=== PATIENT | male | born 1980 | race Caucasian/White ===

== ENCOUNTER → 2020-11-22 | Outpatient (CLI) | payer OTHER ==
[~2020-11-22] MED LIST: FLONASEALLERGY NS; NORCO 325 MG-51 TAB PO; ZYRTEC ALLERGY10 MG PO
== END ==
LOC: MHCPAIN 09:33
DX: M47.816 Spondylosis without myelopathy or radiculopathy, lumbar region (principal); M54.16 Radiculopathy, lumbar region; M53.3 Sacrococcygeal disorders, not elsewhere classified; G89.29 Other chronic pain
CPT/HCPCS: G0463

== ENCOUNTER 2020-11-27 10:24 | Day surgery (SDC) | payer OTHER ==
[~2020-11-27] VITALS: Ht 180.3 cm; Wt 103.8 kg
[2020-11-27 11:06] VITALS: BP 137/84; PULSE 63; TEMP 98.4
[2020-11-27] MEDS ORDERED: ZYRTEC ALLERGY10 MG PO (11:12)
[2020-11-27] MEDS ORDERED: FLONASEALLERGY NS (11:13)
[2020-11-27] MEDS ORDERED: NORCO 325 MG-51 TAB PO (14:06)
[2020-11-27 14:55] VITALS: BP 130/96; PULSE 54; TEMP 97.5
--- NOTE | 2020-11-27 14:55 | NUR ---
TO RM 6 PER CART FROM PACU. ALERT ORIENTED X 3 TALKING TO STAFF. UPON RETURNING AMBULATED TO BATHROOM WITH ASSIST. VOIDED AND AMBULATED BACK TO RM. [employer] INTACT. C/O 01/29.
[2020-11-27 15:00] VITALS: BP 147/79; PULSE 51
--- NOTE | 2020-11-27 15:00 | NUR ---
TEXTING ON PHONE . C/O PAIN 03/01
[2020-11-27 15:15] VITALS: BP 153/76; PULSE 51
--- NOTE | 2020-11-27 15:15 | NUR ---
RECEIVED MUFFIN AND TOLERATED WELL.
--- NOTE | 2020-11-27 15:21 | NUR ---
RECEIVED NORCO 5MG 1 TAB
[2020-11-27 15:47] VITALS: BP 143/58; PULSE 61
--- NOTE | 2020-11-27 15:47 | NUR ---
AMBULATED TO BATHROOM AND TOLERATED WELL.
--- NOTE | 2020-11-27 16:05 | NUR ---
RECEIVED DISCHARGE INSTRUCTIONS AND VERBALIZED UNDERSTANDING. DISCONTINUED IV AND INT- CATHETER INTACT. PATIENT TEXTED FATHER TO PICK HIM UP. PATIENT GETTING DRESSED.
--- NOTE | 2020-11-27 16:15 | NUR ---
DISCHARGED PER BY NURSING STAFF TO PRIVATE CAR IN CARE OF FATHER ARIAS.
== END 2020-11-27 16:39 | disposition home or self-care (01) ==
LOC: SDCO
DX: K40.20 Bilateral inguinal hernia, without obstruction or gangrene, not specified as recurrent (principal); D17.6 Benign lipomatous neoplasm of spermatic cord; F17.220 Nicotine dependence, chewing tobacco, uncomplicated; Z88.0 Allergy status to penicillin; Z20.822 Contact with and (suspected) exposure to COVID-19; Z79.899 Other long term (current) drug therapy; Z80.3 Family history of malignant neoplasm of breast; Z83.3 Family history of diabetes mellitus
CPT/HCPCS: C1781; J0330; J0690; J1100; J1885; J2405; J2704; J2710; J3010; J7120

== ENCOUNTER → 2020-12-18 | Outpatient (CLI) | payer OTHER | LOC: MHCPAIN 11:19 | DX: M47.817 Spondylosis without myelopathy or radiculopathy, lumbosacral region (principal); M54.17 Radiculopathy, lumbosacral region | CPT/HCPCS: J1100; Q9967 ==

== ENCOUNTER → 2020-12-25 | Outpatient (CLI) | payer OTHER | LOC: MHCPAIN 10:52 | DX: M47.817 Spondylosis without myelopathy or radiculopathy, lumbosacral region (principal); M53.3 Sacrococcygeal disorders, not elsewhere classified; M54.16 Radiculopathy, lumbar region; G89.29 Other chronic pain | CPT/HCPCS: G0463 ==

== ENCOUNTER → 2021-01-08 | Outpatient (CLI) | payer OTHER | LOC: MHCPAIN 12:26 | DX: M53.3 Sacrococcygeal disorders, not elsewhere classified (principal) | CPT/HCPCS: J1100; Q9967 ==

== ENCOUNTER → 2021-01-17 | Outpatient (CLI) | payer OTHER | LOC: MHCPAIN 14:58 | DX: M47.817 Spondylosis without myelopathy or radiculopathy, lumbosacral region (principal); M54.5 Low back pain; M53.3 Sacrococcygeal disorders, not elsewhere classified; G89.29 Other chronic pain | CPT/HCPCS: G0463 ==

== ENCOUNTER → 2021-01-22 | Outpatient (CLI) | payer OTHER | LOC: MHCPAIN 12:43 | DX: M47.817 Spondylosis without myelopathy or radiculopathy, lumbosacral region (principal); M54.5 Low back pain ==

== ENCOUNTER → 2021-01-30 | Outpatient (CLI) | payer OTHER | LOC: MHCPAIN 08:34 | DX: M47.817 Spondylosis without myelopathy or radiculopathy, lumbosacral region (principal); M53.3 Sacrococcygeal disorders, not elsewhere classified; M54.5 Low back pain; G89.29 Other chronic pain | CPT/HCPCS: G0463 ==

== ENCOUNTER → 2021-02-05 | Outpatient (CLI) | payer OTHER | LOC: MHCPAIN 13:24 | DX: M47.817 Spondylosis without myelopathy or radiculopathy, lumbosacral region (principal); M54.5 Low back pain ==

== ENCOUNTER → 2021-02-22 | Outpatient (CLI) | payer OTHER | LOC: MHCPAIN 07:41 | DX: M47.817 Spondylosis without myelopathy or radiculopathy, lumbosacral region (principal); M54.5 Low back pain; M53.3 Sacrococcygeal disorders, not elsewhere classified | CPT/HCPCS: G0463; J1100; J2250; J3010 ==

== ENCOUNTER → 2021-02-26 | Outpatient (CLI) | payer OTHER | LOC: MHCPAIN 12:00 | DX: M47.817 Spondylosis without myelopathy or radiculopathy, lumbosacral region (principal); M54.5 Low back pain; M53.3 Sacrococcygeal disorders, not elsewhere classified | CPT/HCPCS: J1100; J2250; J3010 ==